=== PATIENT | female | born 1945 | race Caucasian/White ===

== ENCOUNTER 2018-09-22 13:15 | Inpatient (IN) | payer MEDICARE ==
[2018-09-29 12:57] VITALS: BMI 26.6
[2018-10-03] MEDS ORDERED: Fentanyl 100 MCG/2 ML VIAL ONE ×2 (06:26→07:38)
[2018-10-03] MEDS ORDERED: Midazolam HCl 2 mg/2 ml Vial ONE (06:26)
[2018-10-03] MEDS ORDERED: Lidocaine 1% (PF) 30 ML VIAL ONE (06:27)
[2018-10-03] MEDS ORDERED: Neomycin-Polymyxin 1 ML AMP ONE (06:57)
[2018-10-03] MEDS ORDERED: Bupivacaine/Epinephrine 0.25% 30 ML VIAL ONE (06:57)
[2018-10-03] MEDS ORDERED: CEFAZOLIN 2 GM/50 ML BAG ONE (07:01)
[2018-10-03] MEDS ORDERED: Dexamethasone 4 mg/ml Vial ONE (07:03)
[2018-10-03] MEDS ORDERED: Promethazine HCl 25 MG/ML VIAL IM PRN ×2 (07:38→07:45)
[2018-10-03] MEDS ORDERED: Zolpidem Tartrate 5 MG TAB PO PRN ×2 (07:38→07:45)
[2018-10-03] MEDS ORDERED: Ketorolac Tromethamine 30 MG/ML VIAL IVP PRN (07:38)
[2018-10-03] MEDS ORDERED: Ondansetron PF 4 MG/2 ML Vial IVP PRN (07:38)
[2018-10-03] MEDS ORDERED: Fentanyl 100 MCG/2 ML VIAL IV PRN (07:38)
[2018-10-03] MEDS ORDERED: diphenhydrAMINE 25 MG CAP PO PRN (07:45)
[2018-10-03] MEDS ORDERED: Tranexamic Acid 1,000 MG in Sodium Chloride 0.9% 100 ML IVPB SCH ×2 (07:45→08:00)
[2018-10-03] MEDS ORDERED: CEFAZOLIN/Water 2 GM/20 ML SYRINGE SLOW IVP SCH (07:45)
[2018-10-03] MEDS ORDERED: Acetaminophen 1,000 MG in Premix Bag 1 BAG IVPB SCH (07:45)
[2018-10-03] MEDS ORDERED: Tranexamic Acid 1,000 MG/10 ML VIAL ONE ×2 (08:02→09:43)
[2018-10-03] MEDS ORDERED: levETIRAcetam 500 MG TAB PO SCH (09:00)
[2018-10-03] MEDS ORDERED: Aspirin 81 mg Enteric Coated Tablet PO SCH ×2 (09:00)
[2018-10-03] MEDS ORDERED: Morphine 2 MG/ML SYRINGE ONE ×2 (09:33→09:57)
[2018-10-03] MEDS ORDERED: Ketorolac Tromethamine 30 MG/ML VIAL ONE (10:20)
--- NOTE | 2018-10-03 10:25 | RAD ---
PORTABLE LEFT KNEE TWO VIEWS: History: Total knee replacement. FINDINGS/IMPRESSION: There are recent post op changes of total knee arthroplasty in good position and alignment. Surgical mikal and soft tissue air are present. POS: C
[2018-10-03] MEDS ORDERED: Ondansetron PF 4 MG/2 ML Vial ONE ×2 (11:01→15:26)
[2018-10-03] MEDS: Sodium Chloride 0.9% 1,000 ML IV SCH ×2 (12:38→17:09)
[2018-10-03] MEDS ORDERED: Acetaminophen 325 MG TAB PO PRN (13:00)
[2018-10-03] MEDS: Aspirin 81 mg Enteric Coated Tablet PO SCH ×2 (13:27→20:37)
[2018-10-03] MEDS: Mag-Al 1200 mg/1200 mg/30 ML UDCUP PO PRN (13:31)
[2018-10-03] MEDS: Bupropion 150 MG SR TAB PO SCH (13:31)
--- NOTE | 2018-10-03 14:22 | PDOC.PN ---
- Subjective Encounter Start Date: 10/03/18 Encounter Start Time: 14:18 Pt seen for management of medical comorbidities including hypertension. Denies chest pain, shortness of breath, fevers or chills. - Objective MAR Reviewed: Yes Vital Signs & Weight: Weight Weight 160 lb Additional Labs: Labs reviewed by me Phys Exam - Physical Examination Constitutional: NAD HEENT: moist MMs Neck: supple Respiratory: clear to auscultation bilateral Cardiovascular: RRR Gastrointestinal: soft s/p left knee surgery Neurological: moves all 4 limbs Psychiatric: normal affect Dx/Plan (1) HTN (hypertension) Code(s): I10 - ESSENTIAL (PRIMARY) HYPERTENSION Status: Chronic Comment: resume home medications, monitor vital signs and titrate antihypertensives as needed (2) Dyslipidemia Code(s): E78.5 - HYPERLIPIDEMIA, UNSPECIFIED Status: Chronic Comment: continue statin (3) GERD (gastroesophageal reflux disease) Code(s): K21.9 - GASTRO-ESOPHAGEAL REFLUX DISEASE WITHOUT ESOPHAGITIS Status: Chronic Comment: continue PPI - Plan out of bed/ambulate * . DVT prophylaxis and pain management per primary service Review of Systems - Review of Systems Cardiovascular: negative: chest pain, palpitations, orthopnea, paroxysmal nocturnal dyspnea, edema, light headedness Gastrointestinal: negative: Nausea, Vomiting, Abdominal Pain, Diarrhea, Constipation, Melena, Hematochezia - Medications/Allergies Allergies/Adverse Reactions: Allergies Allergy/AdvReac Type Severity Reaction Status Date / Time No Known Allergies Allergy Verified 09/29/18 12:58 Medications: Current Medications Acetaminophen (Tylenol) 650 mg PO Q4H PRN PRN Reason: FUENTES/ T > 101F; Mild Pain (1-3) Hydrocodone Bitart/Acetaminophen ([place] 7.5/325) 1 tab PO Q4H PRN PRN Reason: Mild Pain (1-3) Hydrocodone Bitart/Acetaminophen ([place] 7.5/325) 2 tab PO Q4H PRN PRN Reason: Moderate Pain (4-6) Al Hydroxide/Mg Hydroxide (Maalox) 30 ml PO Q8H PRN PRN Reason: Heartburn or Indigestion Last Admin: 10/03/18 13:31 Dose: 30 ml Alprazolam (Xanax) 0.25 mg PO BID PRN PRN Reason: Anxiety Aspirin (Ecotrin) 81 mg PO BID [facility] Last Admin: 10/03/18 13:27 Dose: Not Given Atorvastatin Calcium (Lipitor) 40 mg PO HS [facility] Bupropion HCl (Wellbutrin Sr) 150 mg PO DAILY [facility] Last Admin: 10/03/18 13:31 Dose: Not Given Clonazepam (Klonopin) 0.5 mg PO HS [facility] Diphenhydramine HCl (Benadryl) 25 mg PO Q6H PRN PRN Reason: Itching Fentanyl (Sublimaze) 50 mcg IV Q1H PRN PRN Reason: BREAKTHROUGH PAIN Ferrous Gluconate (Fergon) 324 mg PO BID[facility] Ropivacaine 250 ml/ Device 250 mls @ 0 mls/hr NERVE BLCK INF [facility] Sodium Chloride (Normal Saline 0.9%) 1,000 mls @ 100 mls/hr IV .Q10H [facility] Last Admin: 10/03/18 12:38 Dose: Not Given Cefazolin Sodium/Dextrose 2 gm (/ Device) 50 mls @ 100 mls/hr IVPB 0700,1500, 2300 [facility] Stop: 10/03/18 23:29 Iron/Minerals/Multivitamins (Theragran M) 1 tab PO DAILY [facility] Ketorolac Tromethamine (Toradol) 15 mg IVP Q6H PRN PRN Reason: Moderate Pain (4-6) Stop: 10/06/18 07:39 Levetiracetam (Keppra) 500 mg PO DAILY [facility] Last Admin: 10/03/18 13:26 Dose: Not Given Lisinopril (Zestril) 20 mg PO DAILY [facility] Ondansetron HCl (Zofran) 4 mg IVP Q6H PRN PRN Reason: Nausea/Vomiting Pantoprazole Sodium (Protonix) 40 mg PO DAILY [facility] Pantoprazole Sodium (Protonix) 40 mg PO NOW [facility] Stop: 10/03/18 15:00 Last Admin: 10/03/18 13:29 Dose: 40 mg Primidone (Mysoline) 50 mg PO BID [facility] Promethazine HCl (Phenergan) 12.5 mg IM Q4H PRN PRN Reason: Nausea/Vomiting Senna/Docusate Sodium (Senokot S) 2 tab PO BID [facility] Sertraline HCl (Zoloft) 150 mg PO DAILY [facility] Sodium Chloride (Flush - Normal Saline) 10 ml IVF PRN PRN PRN Reason: Saline Flush Tramadol HCl (Ultram) 50 mg PO Q6H PRN PRN Reason: Mild Pain (1-3) Tramadol HCl (Ultram) 100 mg PO Q6H PRN PRN Reason: Moderate Pain 4-6 Zolpidem Tartrate (Ambien) 5 mg PO HSPRN PRN PRN Reason: Insomnia
[2018-10-03] MEDS: Ondansetron PF 4 MG/2 ML Vial IVP PRN (14:37)
[2018-10-03] MEDS: Lisinopril 20 MG TAB PO SCH (14:44)
[2018-10-03] MEDS ORDERED: Bupivacaine HCl 0.5%/Epinephrine 1:200,000/PF 30 ml Vial ONE (14:45)
[2018-10-03] MEDS: CEFAZOLIN 2 GM/50 ML-DEXTROSE 2 GM in Premix Bag 1 BAG IVPB SCH (14:47)
[2018-10-03] MEDS ORDERED: PROPOFOL 200 MG/20 ML VIAL ONE (15:26)
[2018-10-03] MEDS ORDERED: Dexamethasone 20 MG/5 ML VIAL ONE (15:26)
[2018-10-03] MEDS ORDERED: Lidocaine 1% PF 5 ML VIAL ONE (15:26)
[2018-10-03] MEDS: Primidone 50 MG TAB PO SCH ×2 (16:20→20:37)
[2018-10-03] MEDS: levETIRAcetam 500 MG TAB PO SCH (20:37)
[2018-10-03] MEDS: Atorvastatin Calcium 40 MG TAB PO SCH (20:37)
[2018-10-03] MEDS: clonazePAM 0.5 MG TAB PO SCH (20:37)
[2018-10-04] MEDS: CEFAZOLIN 2 GM/50 ML-DEXTROSE 2 GM in Premix Bag 1 BAG IVPB SCH
[2018-10-04] MEDS: HYDROcodone/Acetaminophen 7.5/325 mg Tablet PO PRN ×5 (01:14→20:35)
[2018-10-04] MEDS: Sodium Chloride 0.9% 1,000 ML IV SCH ×2 (02:45→13:13)
[2018-10-04 06:45] LABS: Mean Corpuscular HGB CONC 32.6 g/dL (32.0-36.0); Mean Corpuscular Hemoglobin 32.2 pg (27.0-31.0); Mean Corpuscular Volume 98.8 fL (78.0-98.0); Mean Platelet Volume 8.4 fL (7.4-10.4); Platelet Count 153 thou/uL (130-400); RBC Distribution Width 12.5 % (11.5-14.5); Red Blood Cell (RBC) Count 3.42 mill/uL (4.20-5.40); White Blood Cell (WBC) Count 8.5 thou/uL (4.8-10.8)
[2018-10-04] MEDS: Aspirin 81 mg Enteric Coated Tablet PO SCH ×2 (08:19→20:35)
[2018-10-04] MEDS: Lisinopril 20 MG TAB PO SCH (08:19)
[2018-10-04] MEDS: Senokot S 8.6-50 MG TAB PO SCH ×2 (08:22→20:35)
[2018-10-04] MEDS: Ferrous Gluconate 324 MG TAB PO SCH ×2 (08:22→17:39)
[2018-10-04] MEDS: Multivitamin W/ Minerals 1 TAB PO SCH (08:23)
[2018-10-04] MEDS: Primidone 50 MG TAB PO SCH ×2 (08:24→20:35)
[2018-10-04] MEDS: Bupropion 150 MG SR TAB PO SCH (08:24)
[2018-10-04] MEDS: Mag-Al 1200 mg/1200 mg/30 ML UDCUP PO PRN (09:27)
[2018-10-04] MEDS: Ropivacaine HCl/PF 250 ML in Premix Bag 1 BAG NERVE BLCK SCH (10:53)
--- NOTE | 2018-10-04 16:08 | PDOC.PN ---
- Subjective Encounter Start Date: 10/04/18 Encounter Start Time: 09:00 Pt seen for followup re: hypertension. Denies chest pain, shortness of breath, fevers or chills. - Objective MAR Reviewed: Yes Vital Signs & Weight: Vital Signs (12 hours) Temp Pulse Resp BP BP Pulse Ox 10/04/18 15:51 99.1 F 67 18 102/63 96 10/04/18 11:32 97.9 F 69 17 118/70 98 10/04/18 08:52 98.7 F 73 18 120/78 92 L 10/04/18 08:19 120/78 10/04/18 08:00 92 L Weight Admit Weight 160 lb Weight 160 lb I&O: 10/03/18 10/04/18 10/05/18 06:59 06:59 06:59 Intake Total 3580 Output Total 1900 Balance 1680 Result Diagrams: 10/04/18 06:25 Additional Labs: Labs reviewed by me Phys Exam - Physical Examination Constitutional: NAD HEENT: moist MMs Neck: supple Cardiovascular: RRR Gastrointestinal: soft L knee s/p surgery Neurological: moves all 4 limbs Psychiatric: normal affect Dx/Plan (1) HTN (hypertension) Code(s): I10 - ESSENTIAL (PRIMARY) HYPERTENSION Status: Chronic Comment: controlled, continue to monitor vital signs and titrate antihypertensives as needed (2) Dyslipidemia Code(s): E78.5 - HYPERLIPIDEMIA, UNSPECIFIED Status: Chronic Comment: on statin (3) GERD (gastroesophageal reflux disease) Code(s): K21.9 - GASTRO-ESOPHAGEAL REFLUX DISEASE WITHOUT ESOPHAGITIS Status: Chronic Comment: stable, continue PPI - Plan * . Review of Systems - Review of Systems Respiratory: negative: Cough, Shortness of Breath, Hemoptysis, SOB with Excertion, Pleuritic Pain, Sputum, Wheezing Cardiovascular: negative: chest pain, palpitations, orthopnea, paroxysmal nocturnal dyspnea, edema, light headedness - Medications/Allergies Allergies/Adverse Reactions: Allergies Allergy/AdvReac Type Severity Reaction Status Date / Time No Known Allergies Allergy Verified 09/29/18 12:58 Medications: Current Medications Acetaminophen (Tylenol) 650 mg PO Q4H PRN PRN Reason: FUENTES/ T > 101F; Mild Pain (1-3) Hydrocodone Bitart/Acetaminophen ([place] 7.5/325) 1 tab PO Q4H PRN PRN Reason: Mild Pain (1-3) Hydrocodone Bitart/Acetaminophen ([place] 7.5/325) 2 tab PO Q4H PRN PRN Reason: Moderate Pain (4-6) Last Admin: 10/04/18 13:15 Dose: 2 tab Al Hydroxide/Mg Hydroxide (Maalox) 30 ml PO Q8H PRN PRN Reason: Heartburn or Indigestion Last Admin: 10/04/18 09:27 Dose: 30 ml Alprazolam (Xanax) 0.25 mg PO BID PRN PRN Reason: Anxiety Aspirin (Ecotrin) 81 mg PO BID [facility] Last Admin: 10/04/18 08:19 Dose: 81 mg Atorvastatin Calcium (Lipitor) 40 mg PO [facility] Last Admin: 10/03/18 20:37 Dose: 40 mg Bupropion HCl (Wellbutrin Sr) 150 mg PO DAILY [facility] Last Admin: 10/04/18 08:24 Dose: 150 mg Clonazepam (Klonopin) 0.5 mg PO [facility] Last Admin: 10/03/18 20:37 Dose: 0.5 mg Diphenhydramine HCl (Benadryl) 25 mg PO Q6H PRN PRN Reason: Itching Fentanyl (Sublimaze) 50 mcg IV Q1H PRN PRN Reason: BREAKTHROUGH PAIN Ferrous Gluconate (Fergon) 324 mg PO BID-[facility] Last Admin: 10/04/18 08:22 Dose: 324 mg Ropivacaine 250 ml/ Device 250 mls @ 0 mls/hr NERVE BLCK INF [facility] Last Admin: 10/04/18 10:53 Dose: 250 mls Sodium Chloride (Normal Saline 0.9%) 1,000 mls @ 100 mls/hr IV .Q10H [facility] Last Admin: 10/04/18 13:13 Dose: Not Given Iron/Minerals/Multivitamins (Theragran M) 1 tab PO DAILY [facility] Last Admin: 10/04/18 08:23 Dose: 1 tab Ketorolac Tromethamine (Toradol) 15 mg IVP Q6H PRN PRN Reason: Moderate Pain (4-6) Stop: 10/06/18 07:39 Levetiracetam (Keppra) 500 mg PO [facility] Last Admin: 10/03/18 20:37 Dose: 500 mg Lisinopril (Zestril) 20 mg PO DAILY [facility] Last Admin: 10/04/18 08:19 Dose: 20 mg Ondansetron HCl (Zofran) 4 mg IVP Q6H PRN PRN Reason: Nausea/Vomiting Last Admin: 10/03/18 14:37 Dose: 4 mg Pantoprazole Sodium (Protonix) 40 mg PO DAILY [facility] Last Admin: 10/04/18 08:21 Dose: 40 mg Primidone (Mysoline) 50 mg PO BID [facility] Last Admin: 10/04/18 08:24 Dose: 50 mg Promethazine HCl (Phenergan) 12.5 mg IM Q4H PRN PRN Reason: Nausea/Vomiting Senna/Docusate Sodium (Senokot S) 2 tab PO BID [facility] Last Admin: 10/04/18 08:22 Dose: 2 tab Sertraline HCl (Zoloft) 150 mg PO DAILY [facility] Last Admin: 10/04/18 08:22 Dose: 150 mg Sodium Chloride (Flush - Normal Saline) 10 ml IVF PRN PRN PRN Reason: Saline Flush Tramadol HCl (Ultram) 50 mg PO Q6H PRN PRN Reason: Mild Pain (1-3) Tramadol HCl (Ultram) 100 mg PO Q6H PRN PRN Reason: Moderate Pain 4-6 Zolpidem Tartrate (Ambien) 5 mg PO HSPRN PRN PRN Reason: Insomnia
[2018-10-04] MEDS: clonazePAM 0.5 MG TAB PO SCH (20:35)
[2018-10-04] MEDS: levETIRAcetam 500 MG TAB PO SCH (20:35)
[2018-10-04] MEDS: Atorvastatin Calcium 40 MG TAB PO SCH (20:35)
[2018-10-05] MEDS: Sodium Chloride 0.9% 1,000 ML IV SCH ×4 (00:45→23:30)
[2018-10-05] MEDS: HYDROcodone/Acetaminophen 7.5/325 mg Tablet PO PRN ×3 (05:01→17:00)
[2018-10-05 05:59] LABS: Hemoglobin 11.3 g/dL (12.0-16.0); Mean Corpuscular HGB CONC 32.5 g/dL (32.0-36.0); Mean Corpuscular Hemoglobin 32.7 pg (27.0-31.0); Mean Platelet Volume 9.1 fL (7.4-10.4); Platelet Count 146 thou/uL (130-400); RBC Distribution Width 12.5 % (11.5-14.5); Red Blood Cell (RBC) Count 3.45 mill/uL (4.20-5.40); White Blood Cell (WBC) Count 9.2 thou/uL (4.8-10.8)
[2018-10-05] MEDS: Ondansetron PF 4 MG/2 ML Vial IVP PRN (09:50)
[2018-10-05] MEDS: Ferrous Gluconate 324 MG TAB PO SCH ×2 (09:57→17:00)
[2018-10-05] MEDS: Senokot S 8.6-50 MG TAB PO SCH ×2 (09:58→21:10)
[2018-10-05] MEDS: Aspirin 81 mg Enteric Coated Tablet PO SCH ×2 (09:58→21:10)
[2018-10-05] MEDS: Bupropion 150 MG SR TAB PO SCH (09:58)
[2018-10-05] MEDS: Multivitamin W/ Minerals 1 TAB PO SCH (09:59)
[2018-10-05] MEDS: Lisinopril 20 MG TAB PO SCH (09:59)
[2018-10-05] MEDS: Primidone 50 MG TAB PO SCH ×2 (10:01→21:12)
[2018-10-05] MEDS: Ropivacaine HCl/PF 250 ML in Premix Bag 1 BAG NERVE BLCK SCH (13:39)
--- NOTE | 2018-10-05 14:38 | PDOC.PN ---
- Subjective Encounter Start Date: 10/05/18 Encounter Start Time: 08:20 Pt seen for followup re: hypertension. No complaints today. - Objective Vital Signs & Weight: Vital Signs (12 hours) Temp Pulse Pulse Pulse Resp BP BP 10/05/18 11:00 98.4 F 78 18 10/05/18 09:59 136/70 10/05/18 09:32 77 79 89/58 L 10/05/18 09:00 10/05/18 07:38 98.7 F 74 18 10/05/18 04:00 98.7 F 77 18 BP BP Pulse Ox Pulse Ox Pulse Ox 10/05/18 11:00 119/51 L 95 10/05/18 09:59 10/05/18 09:32 136/88 96 99 10/05/18 09:00 94 L 10/05/18 07:38 116/67 94 L 10/05/18 04:00 111/71 94 L Weight Admit Weight 160 lb Weight 160 lb I&O: 10/04/18 10/05/18 10/06/18 06:59 06:59 06:59 Intake Total 3580 1940 Output Total 1900 4600 Balance 1680 -2660 Result Diagrams: 10/05/18 05:11 Phys Exam - Physical Examination Constitutional: NAD HEENT: moist MMs Neck: supple Respiratory: clear to auscultation bilateral Cardiovascular: RRR Gastrointestinal: soft s/p L knee surgery Neurological: moves all 4 limbs Psychiatric: normal affect Dx/Plan (1) HTN (hypertension) Code(s): I10 - ESSENTIAL (PRIMARY) HYPERTENSION Status: Chronic Comment: controlled (2) Dyslipidemia Code(s): E78.5 - HYPERLIPIDEMIA, UNSPECIFIED Status: Chronic Comment: on statin (3) GERD (gastroesophageal reflux disease) Code(s): K21.9 - GASTRO-ESOPHAGEAL REFLUX DISEASE WITHOUT ESOPHAGITIS Status: Chronic Comment: continue PPI - Plan * . Review of Systems - Review of Systems Respiratory: negative: Cough, Shortness of Breath, SOB with Excertion, Pleuritic Pain, Wheezing Cardiovascular: negative: chest pain, palpitations, orthopnea, paroxysmal nocturnal dyspnea, edema, light headedness - Medications/Allergies Allergies/Adverse Reactions: Allergies Allergy/AdvReac Type Severity Reaction Status Date / Time No Known Allergies Allergy Verified 09/29/18 12:58 Medications: Current Medications Acetaminophen (Tylenol) 650 mg PO Q4H PRN PRN Reason: FUENTES/ T > 101F; Mild Pain (1-3) Hydrocodone Bitart/Acetaminophen ([place] 7.5/325) 1 tab PO Q4H PRN PRN Reason: Mild Pain (1-3) Hydrocodone Bitart/Acetaminophen ([place] 7.5/325) 2 tab PO Q4H PRN PRN Reason: Moderate Pain (4-6) Last Admin: 10/05/18 10:01 Dose: 2 tab Al Hydroxide/Mg Hydroxide (Maalox) 30 ml PO Q8H PRN PRN Reason: Heartburn or Indigestion Last Admin: 10/04/18 09:27 Dose: 30 ml Alprazolam (Xanax) 0.25 mg PO BID PRN PRN Reason: Anxiety Aspirin (Ecotrin) 81 mg PO BID [facility] Last Admin: 10/05/18 09:58 Dose: 81 mg Atorvastatin Calcium (Lipitor) 40 mg PO HS [facility] Last Admin: 10/04/18 20:35 Dose: 40 mg Bupropion HCl (Wellbutrin Sr) 150 mg PO DAILY [facility] Last Admin: 10/05/18 09:58 Dose: 150 mg Clonazepam (Klonopin) 0.5 mg PO HS [facility] Last Admin: 10/04/18 20:35 Dose: 0.5 mg Diphenhydramine HCl (Benadryl) 25 mg PO Q6H PRN PRN Reason: Itching Fentanyl (Sublimaze) 50 mcg IV Q1H PRN PRN Reason: BREAKTHROUGH PAIN Ferrous Gluconate (Fergon) 324 mg PO BID[facility] Last Admin: 10/05/18 09:57 Dose: 324 mg Ropivacaine 250 ml/ Device 250 mls @ 0 mls/hr NERVE BLCK INF [facility] Last Admin: 10/05/18 13:39 Dose: 250 mls Sodium Chloride (Normal Saline 0.9%) 1,000 mls @ 100 mls/hr IV .Q10H [facility] Last Admin: 10/05/18 07:41 Dose: Not Given Iron/Minerals/Multivitamins (Theragran M) 1 tab PO DAILY [facility] Last Admin: 10/05/18 09:59 Dose: 1 tab Ketorolac Tromethamine (Toradol) 15 mg IVP Q6H PRN PRN Reason: Moderate Pain (4-6) Stop: 10/06/18 07:39 Levetiracetam (Keppra) 500 mg PO HS [facility] Last Admin: 10/04/18 20:35 Dose: 500 mg Lisinopril (Zestril) 20 mg PO DAILY [facility] Last Admin: 10/05/18 09:59 Dose: 20 mg Ondansetron HCl (Zofran) 4 mg IVP Q6H PRN PRN Reason: Nausea/Vomiting Last Admin: 10/05/18 09:50 Dose: 4 mg Pantoprazole Sodium (Protonix) 40 mg PO DAILY [facility] Last Admin: 10/05/18 09:57 Dose: 40 mg Pantoprazole Sodium (Protonix) 40 mg PO DAILY [facility] Last Admin: 10/05/18 09:58 Dose: Not Given Primidone (Mysoline) 50 mg PO BID [facility] Last Admin: 10/05/18 10:01 Dose: 50 mg Promethazine HCl (Phenergan) 12.5 mg IM Q4H PRN PRN Reason: Nausea/Vomiting Senna/Docusate Sodium (Senokot S) 2 tab PO BID [facility] Last Admin: 10/05/18 09:58 Dose: 2 tab Sertraline HCl (Zoloft) 150 mg PO DAILY [facility] Last Admin: 10/05/18 09:59 Dose: 150 mg Sodium Chloride (Flush - Normal Saline) 10 ml IVF PRN PRN PRN Reason: Saline Flush Last Admin: 10/05/18 09:52 Dose: 10 ml Tramadol HCl (Ultram) 50 mg PO Q6H PRN PRN Reason: Mild Pain (1-3) Tramadol HCl (Ultram) 100 mg PO Q6H PRN PRN Reason: Moderate Pain 4-6 Zolpidem Tartrate (Ambien) 5 mg PO HSPRN PRN PRN Reason: Insomnia
[2018-10-05] MEDS: clonazePAM 0.5 MG TAB PO SCH (21:10)
[2018-10-05] MEDS: Atorvastatin Calcium 40 MG TAB PO SCH (21:10)
[2018-10-05] MEDS: levETIRAcetam 500 MG TAB PO SCH (21:10)
[2018-10-06] MEDS: traMADol HCl 50 MG TAB PO PRN ×3 (00:22→20:02)
[2018-10-06] MEDS: ALPRAZolam 0.25 MG TAB PO PRN ×2 (05:25→22:45)
[2018-10-06 05:48] LABS: Hemoglobin 11.3 g/dL (12.0-16.0); Mean Corpuscular HGB CONC 31.5 g/dL (32.0-36.0); Mean Corpuscular Hemoglobin 31.5 pg (27.0-31.0); Platelet Count 166 thou/uL (130-400); RBC Distribution Width 12.5 % (11.5-14.5); Red Blood Cell (RBC) Count 3.59 mill/uL (4.20-5.40); White Blood Cell (WBC) Count 9.7 thou/uL (4.8-10.8)
[2018-10-06] MEDS: Sodium Chloride 0.9% 1,000 ML IV SCH ×2 (07:18→21:36)
[2018-10-06] MEDS: Ferrous Gluconate 324 MG TAB PO SCH ×2 (08:37→17:14)
[2018-10-06] MEDS: Bupropion 150 MG SR TAB PO SCH (08:37)
[2018-10-06] MEDS: Multivitamin W/ Minerals 1 TAB PO SCH (08:38)
[2018-10-06] MEDS: Senokot S 8.6-50 MG TAB PO SCH ×2 (08:38→20:03)
[2018-10-06] MEDS: Lisinopril 20 MG TAB PO SCH (08:38)
[2018-10-06] MEDS: Aspirin 81 mg Enteric Coated Tablet PO SCH ×2 (08:38→20:03)
[2018-10-06] MEDS: Primidone 50 MG TAB PO SCH ×2 (08:39→20:03)
[2018-10-06] MEDS: levETIRAcetam 500 MG TAB PO SCH (20:03)
[2018-10-06] MEDS: Atorvastatin Calcium 40 MG TAB PO SCH (20:03)
[2018-10-06] MEDS: clonazePAM 0.5 MG TAB PO SCH (20:03)
[2018-10-06] MEDS ORDERED: Polyethylene Glycol 3350 17 GM Packet PO PRN (20:58)
[2018-10-07 05:51] LABS: Hemoglobin 11.1 g/dL (12.0-16.0); Mean Corpuscular HGB CONC 32.3 g/dL (32.0-36.0); Mean Corpuscular Hemoglobin 32.1 pg (27.0-31.0); Mean Corpuscular Volume 99.4 fL (78.0-98.0); Platelet Count 189 thou/uL (130-400); RBC Distribution Width 12.4 % (11.5-14.5); Red Blood Cell (RBC) Count 3.47 mill/uL (4.20-5.40); White Blood Cell (WBC) Count 9.4 thou/uL (4.8-10.8)
[2018-10-07] MEDS: Sodium Chloride 0.9% 1,000 ML IV SCH ×2 (07:25→23:56)
[2018-10-07 07:56] LABS: Anion Gap 11 mmol/L (10-20); BUN (Urea Nitrogen) 15 mg/dL (9.8-20.1); Calc. Creatinine Clearance 93 mL/min (70-130); Calcium 9.3 mg/dL (7.8-10.44); Carbon Dioxide 27 mmol/L (23-31); Chloride 103 mmol/L (98-107); Estimated GFR-MDRD Greater than 90; Glucose 93 mg/dL (83-110); Magnesium 2.3 mg/dL (1.6-2.6); Sodium 137 mmol/L (136-145)
[2018-10-07] MEDS ORDERED: Lisinopril 20 MG TAB PO SCH (09:00)
[2018-10-07] MEDS: Ferrous Gluconate 324 MG TAB PO SCH ×2 (09:39→16:54)
[2018-10-07] MEDS: Multivitamin W/ Minerals 1 TAB PO SCH (09:40)
[2018-10-07] MEDS: Aspirin 81 mg Enteric Coated Tablet PO SCH ×2 (09:40→21:13)
[2018-10-07] MEDS: Senokot S 8.6-50 MG TAB PO SCH ×2 (09:40→21:14)
[2018-10-07] MEDS: traMADol HCl 50 MG TAB PO PRN ×2 (10:58→21:21)
[2018-10-07] MEDS: Bupropion 150 MG SR TAB PO SCH (10:59)
[2018-10-07] MEDS: Primidone 50 MG TAB PO SCH ×2 (10:59→21:22)
[2018-10-07] MEDS: levETIRAcetam 500 MG TAB PO SCH (21:14)
[2018-10-07] MEDS: clonazePAM 0.5 MG TAB PO SCH (21:14)
[2018-10-07] MEDS: Atorvastatin Calcium 40 MG TAB PO SCH (21:14)
[2018-10-08 05:09] LABS: Hemoglobin 10.9 g/dL (12.0-16.0); Mean Corpuscular HGB CONC 32.9 g/dL (32.0-36.0); Mean Corpuscular Hemoglobin 32.6 pg (27.0-31.0); Mean Corpuscular Volume 99.2 fL (78.0-98.0); Mean Platelet Volume 8.7 fL (7.4-10.4); Platelet Count 207 thou/uL (130-400); Red Blood Cell (RBC) Count 3.33 mill/uL (4.20-5.40); White Blood Cell (WBC) Count 8.8 thou/uL (4.8-10.8)
[2018-10-08] MEDS: Ferrous Gluconate 324 MG TAB PO SCH ×2 (08:17→21:08)
[2018-10-08] MEDS: Bupropion 150 MG SR TAB PO SCH (08:18)
[2018-10-08] MEDS: Sodium Chloride 0.9% 1,000 ML IV SCH ×2 (08:18→19:24)
[2018-10-08] MEDS: Senokot S 8.6-50 MG TAB PO SCH ×2 (08:18→21:08)
[2018-10-08] MEDS: Aspirin 81 mg Enteric Coated Tablet PO SCH ×2 (08:18→21:08)
[2018-10-08] MEDS: Multivitamin W/ Minerals 1 TAB PO SCH (08:19)
[2018-10-08] MEDS: traMADol HCl 50 MG TAB PO PRN ×2 (10:44→21:06)
[2018-10-08] MEDS: Primidone 50 MG TAB PO SCH ×2 (14:08→21:07)
[2018-10-08] MEDS: levETIRAcetam 500 MG TAB PO SCH (21:07)
[2018-10-08] MEDS: clonazePAM 0.5 MG TAB PO SCH (21:07)
[2018-10-08] MEDS: Atorvastatin Calcium 40 MG TAB PO SCH (21:09)
[2018-10-09] MEDS: ALPRAZolam 0.25 MG TAB PO PRN
[2018-10-09] MEDS: Sodium Chloride 0.9% 1,000 ML IV SCH ×2 (03:26→17:54)
[2018-10-09 05:11] LABS: Hemoglobin 10.7 g/dL (12.0-16.0); Mean Corpuscular HGB CONC 33.8 g/dL (32.0-36.0); Mean Corpuscular Hemoglobin 33.5 pg (27.0-31.0); Mean Corpuscular Volume 99.3 fL (78.0-98.0); Mean Platelet Volume 8.2 fL (7.4-10.4); Platelet Count 208 thou/uL (130-400); White Blood Cell (WBC) Count 7.4 thou/uL (4.8-10.8)
[2018-10-09] MEDS: Aspirin 81 mg Enteric Coated Tablet PO SCH ×2 (08:35→20:09)
[2018-10-09] MEDS: Multivitamin W/ Minerals 1 TAB PO SCH (08:39)
[2018-10-09] MEDS: Senokot S 8.6-50 MG TAB PO SCH ×2 (08:39→20:07)
[2018-10-09] MEDS: Primidone 50 MG TAB PO SCH ×2 (08:40→20:09)
[2018-10-09] MEDS: Ferrous Gluconate 324 MG TAB PO SCH ×2 (08:40→19:20)
[2018-10-09] MEDS: Bupropion 150 MG SR TAB PO SCH (08:40)
[2018-10-09] MEDS: traMADol HCl 50 MG TAB PO PRN (10:57)
[2018-10-09] MEDS: HYDROcodone/Acetaminophen 7.5/325 mg Tablet PO PRN ×2 (11:00→20:09)
[2018-10-09] MEDS: Atorvastatin Calcium 40 MG TAB PO SCH (20:08)
[2018-10-09] MEDS: clonazePAM 0.5 MG TAB PO SCH (20:08)
[2018-10-09] MEDS: levETIRAcetam 500 MG TAB PO SCH (20:09)
[2018-10-10] MEDS: Sodium Chloride 0.9% 1,000 ML IV SCH ×3 (01:53→19:41)
[2018-10-10 05:26] LABS: Hemoglobin 11.4 g/dL (12.0-16.0); Mean Corpuscular Hemoglobin 32.8 pg (27.0-31.0); Mean Corpuscular Volume 99.3 fL (78.0-98.0); Mean Platelet Volume 8.2 fL (7.4-10.4); Platelet Count 230 thou/uL (130-400); RBC Distribution Width 12.1 % (11.5-14.5); Red Blood Cell (RBC) Count 3.49 mill/uL (4.20-5.40); White Blood Cell (WBC) Count 6.8 thou/uL (4.8-10.8)
[2018-10-10] MEDS: Multivitamin W/ Minerals 1 TAB PO SCH (08:47)
[2018-10-10] MEDS: Aspirin 81 mg Enteric Coated Tablet PO SCH ×2 (08:47→20:28)
[2018-10-10] MEDS: Ferrous Gluconate 324 MG TAB PO SCH ×2 (08:47→16:10)
[2018-10-10] MEDS: Senokot S 8.6-50 MG TAB PO SCH ×2 (08:47→20:29)
[2018-10-10] MEDS: Bupropion 150 MG SR TAB PO SCH (08:49)
[2018-10-10] MEDS: Primidone 50 MG TAB PO SCH ×2 (08:50→20:28)
[2018-10-10] MEDS: HYDROcodone/Acetaminophen 7.5/325 mg Tablet PO PRN (08:54)
[2018-10-10] MEDS: clonazePAM 0.5 MG TAB PO SCH (20:28)
[2018-10-10] MEDS: Atorvastatin Calcium 40 MG TAB PO SCH (20:28)
[2018-10-10] MEDS: levETIRAcetam 500 MG TAB PO SCH (20:28)
[2018-10-10] MEDS: traMADol HCl 50 MG TAB PO PRN (20:31)
[2018-10-11] MEDS: ALPRAZolam 0.25 MG TAB PO PRN (00:23)
[2018-10-11] MEDS: Sodium Chloride 0.9% 1,000 ML IV SCH ×2 (04:46→15:05)
[2018-10-11 05:19] LABS: Hemoglobin 10.9 g/dL (12.0-16.0); Mean Corpuscular HGB CONC 32.8 g/dL (32.0-36.0); Mean Corpuscular Hemoglobin 32.2 pg (27.0-31.0); Mean Corpuscular Volume 98.2 fL (78.0-98.0); Mean Platelet Volume 8.3 fL (7.4-10.4); Platelet Count 252 thou/uL (130-400); RBC Distribution Width 11.9 % (11.5-14.5); Red Blood Cell (RBC) Count 3.38 mill/uL (4.20-5.40); White Blood Cell (WBC) Count 7.5 thou/uL (4.8-10.8)
[2018-10-11] MEDS: Aspirin 81 mg Enteric Coated Tablet PO SCH ×2 (08:06→20:38)
[2018-10-11] MEDS: Multivitamin W/ Minerals 1 TAB PO SCH (08:07)
[2018-10-11] MEDS: Ferrous Gluconate 324 MG TAB PO SCH ×2 (08:07→17:23)
[2018-10-11] MEDS: Bupropion 150 MG SR TAB PO SCH (08:08)
[2018-10-11] MEDS: Primidone 50 MG TAB PO SCH ×2 (08:08→22:03)
[2018-10-11] MEDS: HYDROcodone/Acetaminophen 7.5/325 mg Tablet PO PRN (09:08)
[2018-10-11] MEDS: Senokot S 8.6-50 MG TAB PO SCH ×3 (09:09→20:44)
[2018-10-11] MEDS: traMADol HCl 50 MG TAB PO PRN (15:05)
[2018-10-11] MEDS: Atorvastatin Calcium 40 MG TAB PO SCH (20:38)
[2018-10-11] MEDS: levETIRAcetam 500 MG TAB PO SCH (20:38)
[2018-10-11] MEDS: clonazePAM 0.5 MG TAB PO SCH (20:38)
[2018-10-12 04:43] LABS: Hemoglobin 11.4 g/dL (12.0-16.0); Mean Corpuscular Hemoglobin 32.8 pg (27.0-31.0); Mean Corpuscular Volume 99.4 fL (78.0-98.0); Mean Platelet Volume 7.6 fL (7.4-10.4); Platelet Count 267 thou/uL (130-400); RBC Distribution Width 12.1 % (11.5-14.5); Red Blood Cell (RBC) Count 3.47 mill/uL (4.20-5.40); White Blood Cell (WBC) Count 8.5 thou/uL (4.8-10.8)
[2018-10-12] MEDS: Sodium Chloride 0.9% 1,000 ML IV SCH ×2 (06:17→17:27)
[2018-10-12] MEDS: Ferrous Gluconate 324 MG TAB PO SCH ×2 (09:04→17:32)
[2018-10-12] MEDS: Multivitamin W/ Minerals 1 TAB PO SCH (09:04)
[2018-10-12] MEDS: Senokot S 8.6-50 MG TAB PO SCH ×2 (09:04→20:52)
[2018-10-12] MEDS: Aspirin 81 mg Enteric Coated Tablet PO SCH ×2 (09:04→20:53)
[2018-10-12] MEDS: Bupropion 150 MG SR TAB PO SCH (09:46)
[2018-10-12] MEDS: HYDROcodone/Acetaminophen 7.5/325 mg Tablet PO PRN (09:46)
[2018-10-12] MEDS: Ondansetron PF 4 MG/2 ML Vial IVP PRN (11:43)
[2018-10-12] MEDS: Primidone 50 MG TAB PO SCH ×2 (13:12→21:08)
[2018-10-12] MEDS: Ondansetron ODT 4 MG TAB PO PRN (13:12)
[2018-10-12] MEDS: levETIRAcetam 500 MG TAB PO SCH (20:53)
[2018-10-12] MEDS: clonazePAM 0.5 MG TAB PO SCH (20:53)
[2018-10-12] MEDS: Atorvastatin Calcium 40 MG TAB PO SCH (20:53)
[2018-10-12] MEDS: traMADol HCl 50 MG TAB PO PRN (20:59)
[2018-10-13] MEDS: Sodium Chloride 0.9% 1,000 ML IV SCH ×2 (00:14→08:38)
[2018-10-13 05:41] LABS: Mean Corpuscular HGB CONC 33.7 g/dL (32.0-36.0); Mean Corpuscular Hemoglobin 33.3 pg (27.0-31.0); Mean Corpuscular Volume 98.7 fL (78.0-98.0); Mean Platelet Volume 7.6 fL (7.4-10.4); Platelet Count 273 thou/uL (130-400); Red Blood Cell (RBC) Count 3.32 mill/uL (4.20-5.40); White Blood Cell (WBC) Count 8.7 thou/uL (4.8-10.8)
[2018-10-13 08:03] VITALS: BP 117/75; TEMP 98.3
[2018-10-13] MEDS: Senokot S 8.6-50 MG TAB PO SCH (08:33)
[2018-10-13] MEDS: Primidone 50 MG TAB PO SCH (08:34)
[2018-10-13] MEDS: Multivitamin W/ Minerals 1 TAB PO SCH (08:34)
[2018-10-13] MEDS: Ferrous Gluconate 324 MG TAB PO SCH (08:34)
[2018-10-13] MEDS: Bupropion 150 MG SR TAB PO SCH (08:34)
[2018-10-13] MEDS: Aspirin 81 mg Enteric Coated Tablet PO SCH (08:38)
[2018-10-13] MEDS: HYDROcodone/Acetaminophen 7.5/325 mg Tablet PO PRN (09:53)
[2018-10-13] MEDS: Ondansetron ODT 4 MG TAB PO PRN (11:07)
== END 2018-10-13 11:45 | disposition home or self-care (01) | DRG 470 ==
LOC: SURG A 10-03 06:03 → SJJU 10-03 11:41 → SURG A 10-11 11:53
PROVIDERS: ADMIT Orthopaedic Surgery; ATTEND Orthopaedic Surgery
PROC: 0SRD0J9 Replacement of Left Knee Joint with Synthetic Substitute, Cemented, Open Approach (ICD-10-PCS; principal; 2018-10-03)
DX: M17.12 Unilateral primary osteoarthritis, left knee (principal); I10 Essential (primary) hypertension; K21.9 Gastro-esophageal reflux disease without esophagitis; E78.5 Hyperlipidemia, unspecified; Z79.899 Other long term (current) drug therapy
CPT/HCPCS: 36415; 80048; 82533; 83735; 85027; C1713; C1776; G8978-GP-CK; G8979-GP-CI; G8987-GO-CK; G8988-GO-CJ; J0131; J0670; J1100; J1885; J2001; J2250; J2270; J2405; J2704; J2795; J3010; Q0162

== ENCOUNTER 2018-09-29 12:34 | Outpatient (CLI) | payer MEDICARE ==
[2018-09-29 15:13] LABS: Hemoglobin 13.7 g/dL (12.0-16.0); Mean Corpuscular HGB CONC 33.3 g/dL (32.0-36.0); Mean Corpuscular Hemoglobin 32.6 pg (27.0-31.0); Mean Platelet Volume 8.9 fL (7.4-10.4); Platelet Count 178 thou/uL (130-400); RBC Distribution Width 12.2 % (11.5-14.5); Red Blood Cell (RBC) Count 4.21 mill/uL (4.20-5.40)
[2018-09-29 15:19] LABS: INR-International Normal Ratio 0.9; PTT 27.5 SEC (22.9-36.1); Prothrombin Time 12.4 SEC (12.0-14.7)
[2018-09-29 15:39] LABS: Anion Gap 8 mmol/L (10-20); BUN (Urea Nitrogen) 9 mg/dL (9.8-20.1); Calc. Creatinine Clearance 0 mL/min (70-130); Calcium 9.7 mg/dL (7.8-10.44); Carbon Dioxide 29 mmol/L (23-31); Chloride 107 mmol/L (98-107); Estimated GFR-MDRD 77; Glucose 90 mg/dL (83-110); Potassium 4.4 mmol/L (3.5-5.1); Sodium 140 mmol/L (136-145)
--- NOTE | 2018-09-29 15:49 | EKG ---
Test Reason : Blood Pressure : / mmHG Vent. Rate : 064 BPM Atrial Rate : 064 BPM P-R Int : 172 ms QRS Dur : 086 ms QT Int : 398 ms P-R-T Axes : 057 010 031 degrees QTc Int : 410 ms Sinus rhythm with Possible Premature ventricular complexes Low voltage QRS Cannot rule out Anterior infarct (cited on or before 23-APR-[id number]) Abnormal ECG Confirmed by KEELY MARIA ([id number]) on 09/29/2018 3:48:44 PM Referred By: QUINTON Confirmed By:KEELY MARIA
== END 2018-09-29 12:35 | disposition home or self-care (01) ==
LOC: LABBT 12:34
PROVIDERS: ATTEND Orthopaedic Surgery
DX: Z01.818 Encounter for other preprocedural examination (principal); M17.12 Unilateral primary osteoarthritis, left knee
CPT/HCPCS: 80048; 85027; 85610; 85730; 86850; 86900; 86901; 87081; 93005; 93010